=== PATIENT | female | born 1950 | race African-American/Black ===

== ENCOUNTER → 2016-11-11 | Outpatient (CLI) | payer MEDICARE, OTHER ==
[~2016-11-11] MED LIST: ACETAMINOPHEN-1 EAC1 ORAL; ADVAIR 100/501 PUFF1 INH; ATORVASTATIN CA20 MG ORAL; BENAZEPRIL HCL20 MG ORAL; BUSPIRONE HCL10 M1 ORAL; CARBIDOPA-LEVO1 EAC3 PO; DETROL2 MG ORAL; DIPHENHYDRAMINE50 MG ORAL; DOCUSATE SODIU100 MG ORAL; FUROSEMIDE40 MG ORAL; GLIPIZIDE5 MG ORAL; HYDROCODON-ACE1 EA13 ORAL; KLOR-CON20 MEQ ORAL; LANSOPRAZOLE30 MG ORAL; LISINOPRIL5 MG ORAL; METOPROLOL TART50 MG ORAL; MONTELUKAST SOD10 MG ORAL; OLANZAPINE ODT20 MG PO; PROAIR HFA8.5 GM INH; RANITIDINE HCL150 MG ORAL; TRAMADOL HCL50 MG ORAL; VALTREX500 MG ORAL; XOPENEX0.63 MG/3 HHN
--- NOTE | 2016-11-14 14:44 | Diagnostic Imaging Report ---
APPROVED REPORT CPT Code: 08392 Present Symptoms Comments: Pain in bilateral feet BILATERAL: Imaging reveals a patent deep venous system bilaterally. There is no evidence of thrombus within the femoral, popliteal or tibial segments. The greater saphenous veins are also within normal limits. Doppler indicates normal spontaneous flow within these segments.
== END | disposition home or self-care (01) ==
LOC: VAS 10:53
DX: M25.572 Pain in left ankle and joints of left foot (principal); M25.571 Pain in right ankle and joints of right foot
CPT/HCPCS: 93970

== ENCOUNTER → 2016-11-30 | Outpatient (CLI) | payer MEDICARE, OTHER ==
--- NOTE | 2016-11-30 22:44 | Diagnostic Imaging Report ---
APPROVED REPORT CPT Code: 78830 Symptoms Comments: Pain bilateral feet Risk Factors Diabetes VELOCITY MEASUREMENTS AND DOPPLER WAVEFORM ANALYSIS RIGHTcm/secWaveformSeverityLEFTcm/secWaveformSeverity Com Fem Art. 175TriphasicCom Fem Art. 133Triphasic Fem Art Prox. 233TriphasicFem Art Prox. 162Triphasic Fem Art Mid. 135TriphasicFem Art Mid. 93Triphasic Fem Art Dist. 108TriphasicFem Art Dist. 94Triphasic Pop Art Prox. 53TriphasicPop Art Prox. 71Triphasic OIL HEAT TECHNICIAN Dist. 56BiphasicPTA Dist. 64Biphasic Per Art Dist. 54BiphasicPer Art Dist. 46Biphasic NATASHA Mid. 66BiphasicATA Mid. 47Biphasic RIGHT LEG: Common femoral artery waveform analysis is within normal limits at rest. Color flow duplex sonography reveals calcification throughout the superficial femoral and popliteal arteries. A mild (30% - 49%) stenosis is seen in the proximal superficial femoral artery. There is no evidence of occlusion within these segments. The posterior tibial, anterior tibial and dorsalis pedis arteries are also patent. DESTINEY 1.0 (right leg) and Doppler tibial artery waveform analysis are within normal limits, at rest. LEFT LEG: Common femoral artery waveform analysis is within normal limits at rest. Color flow duplex sonography reveals calcification throughout the superficial femoral and popliteal arteries. There is no evidence of occlusion within these segments. The posterior tibial, anterior tibial and dorsalis pedis arteries are also patent. DESTINEY 1.0 (left leg) and Doppler tibial artery waveform analysis are within normal limits, at rest
== END | disposition home or self-care (01) ==
LOC: VAS 11:54
DX: M25.572 Pain in left ankle and joints of left foot (principal); M25.571 Pain in right ankle and joints of right foot; E11.9 Type 2 diabetes mellitus without complications
CPT/HCPCS: 93925

== ENCOUNTER 2017-07-21 11:00 | Outpatient (CLI) | payer MEDICARE, OTHER ==
--- NOTE | 2017-07-24 15:44 | Diagnostic Imaging Report ---
Indication: Shoulder pain Technique: MRI of the right shoulder obtained in a 1.5 Natasha magnet. Pulse sequences obtained include axial and coronal proton fast spin-echo with fat saturation, sagittal T1 fast spin-echo, sagittal and coronal T2 fast spin-echo with fat saturation. Findings: There is an approximately 10 x 7 mm focus of fluid level T2 hyperintensity within the footprint of the supraspinatus tendon consistent with a full-thickness tear. There is no retraction of the tendon or evidence of atrophy of the muscle body or fatty replacement. This appears to involve the anterior fibers of the supraspinatus tendon. A small focus of fluid tracks posteriorly along the tendon sheath. There is a small focus of fluid superficial to the tendon within the subacromial bursa. The labrum is grossly unremarkable. Long head of the biceps tendon is noted in the bicipital groove. Biceps anchor is unremarkable. Bone marrow signal is essentially normal. Small cyst noted in the greater tuberosity of humerus. Hypertrophic heterogeneous appearance of the acromioclavicular joint consistent with osteoporosis noted. Impression: 10 x 7 mm full-thickness tear of the anterior aspect of the supraspinatus tendon at its footprint.
== END 2017-07-21 13:00 | disposition home or self-care (01) ==
LOC: MRI 11:00
DX: M25.511 Pain in right shoulder (principal); R53.1 Weakness